=== PATIENT | female | born 1935 | race Caucasian/White ===

== ENCOUNTER 2018-09-28 13:58 | Emergency (ER) | payer MEDICARE ==
[~2018-09-28] VITALS: Ht 157.5 cm; Wt 54.0 kg
[~2018-09-28 13:58] MED LIST: ADV50250 INH; CHOLECALCIFEROL PO; CLOP75TA4 PO; COENZYME Q10 PO; DILT120T3 PO; METO100T7 PO; SIMV20TA5 PO; SPIIN IH; THEO600T PO
[2018-09-28 14:14] LABS: BASOPHILS % (AUTO) 0.1 % (0-1); EOSINOPHILS # (AUTO) 0.1 X10'3 (0-0.9); EOSINOPHILS % (AUTO) 2.2 % (0-6); HEMATOCRIT 39.9 % (35.0-45.0); HEMOGLOBIN 13.1 g/dl (12.0-16.0); LYMPHOCYTES # (AUTO) 0.4 X10'3 (1.1-4.8); LYMPHOCYTES % (AUTO) 8.5 % (21-51); MEAN CORPUSCULAR HEMOGLOBIN 29.9 PG (27.0-31.0); MEAN CORPUSCULAR HGB CONC 32.7 % (33.0-36.5); MEAN CORPUSCULAR VOLUME 91.2 FL (78-98); MEAN PLATELET VOLUME 6.4 FL (7.4-10.4); MONOCYTES # (AUTO) 0.5 X10'3 (0-0.9); MONOCYTES % (AUTO) 9.3 % (2-12); NEUTROPHILS # (AUTO) 4.1 X10'3 (1.8-7.7); NEUTROPHILS % (AUTO) 79.9 % (42-75); PLATELET COUNT 223 X10'3 (140-440); RED BLOOD COUNT 4.38 X10'6 (4.20-5.60); RED CELL DISTRIBUTION WIDTH 14.2 % (11.5-14.5); WHITE BLOOD COUNT 5.1 X10'3 (4.5-11.0)
[2018-09-28 14:29] LABS: PARTIAL THROMBOPLASTIN TIME 25 SECONDS (22-32)
[2018-09-28 14:32] LABS: ALANINE AMINOTRANSFERASE 23 U/L (12-78); ALBUMIN 3.6 G/DL (3.4-5.0); ALKALINE PHOSPHATASE 76 IU/L (46-116); ANION GAP 8 (8-16); ASPARTATE AMINO TRANSFERASE 17 U/L (10-37); BILIRUBIN,TOTAL 0.3 MG/DL (0.1-1.0); BLOOD UREA NITROGEN 14 MG/DL (7-18); BUN/CREATININE RATIO 19.7 (6.6-38.0); CALCIUM 9.4 MG/DL (8.5-10.1); CHLORIDE 100 MMOL/L (99-107); CREATININE 0.71 MG/DL (0.40-0.90); GLUCOSE 173 MG/DL (70-104); MAGNESIUM 1.5 MG/DL (1.5-2.4); POTASSIUM 3.4 MMOL/L (3.5-5.1); SODIUM 141 MMOL/L (135-145); TOTAL CARBON DIOXIDE 33.1 MMOL/L (24-32); TOTAL PROTEIN 7.2 G/DL (6.4-8.2); eGFR 79 ML/MIN
[2018-09-28] MEDS ORDERED: oseltamivir phos 75mg capsule PO ONE (14:45)
[2018-09-28 14:58] LABS: CLARITY,URINE CLEAR (Clear); COLOR,URINE YELLOW (Yellow); GLUCOSE, URINE NEGATIVE (Neg); KETONES,URINE NEGATIVE (Neg); LEUKOCYTE ESTERASE ,URINE MODERATE (Neg); NITRITES, URINE NEGATIVE (Neg); OCCULT BLOOD,URINE NEGATIVE (Neg); PROTEIN,URINE NEGATIVE (Neg); UROBILINOGEN,URINE 0.2 E.U/dL (0.2-1.0)
[2018-09-28 15:05] LABS: UA COLLECTION TYPE CLN CATCH MIDSTREAM
[2018-09-28 15:08] LABS: WBC,URINE 30-50 /HPF (0-4)
[2018-09-28 15:09] LABS: BACTERIA,URINE 2+ /HPF (Neg); RBC,URINE NONE SEEN /HPF (0-2); SQUAMOUS EPITHELIAL CELL,UR FEW /LPF (FEW)
[2018-09-28] MEDS ORDERED: LEVO500T89 PO (16:52)
[2018-09-28 17:17] VITALS: BP 180/83
== END 2018-09-28 17:18 | disposition home or self-care (01) ==
LOC: ER 13:58
DX: N39.0 Urinary tract infection, site not specified (principal); J44.1 Chronic obstructive pulmonary disease with (acute) exacerbation; Z88.1 Allergy status to other antibiotic agents; Z79.899 Other long term (current) drug therapy
CPT/HCPCS: 36415; 71045; 80053; 81001; 83605; 83735; 84145; 85025; 85610; 85730; 87040; 87088; 87502; 87503; 93005; 99284

== ENCOUNTER 2018-12-17 12:44 | Outpatient (CLI) | payer MEDICARE ==
[~2018-12-17] VITALS: Ht 157.5 cm; Wt 54.4 kg
[2018-12-17 13:25] LABS: TOTAL HEMOGLOBIN 13.7 G/dl (12.0-16.0)
[2018-12-17] MEDS ORDERED: albuterol 2.5 MG/3 ML nebule ONE (13:52)
[2018-12-17] MEDS ORDERED: albuterol 2.5 MG/3 ML nebule NEB ONE (14:35)
== END 2018-12-17 23:59 | disposition home or self-care (01) ==
LOC: RT 12:44
PROVIDERS: ATTEND Internal Medicine Pulmonary Disease
DX: J44.9 Chronic obstructive pulmonary disease, unspecified (principal); J61 Pneumoconiosis due to asbestos and other mineral fibers; I10 Essential (primary) hypertension; Z87.891 Personal history of nicotine dependence; Z79.82 Long term (current) use of aspirin; Z79.899 Other long term (current) drug therapy
CPT/HCPCS: 85018; 94060; 94727; 94729; 94760

== ENCOUNTER 2018-12-23 16:23 | Emergency (ER) | payer MEDICARE ==
[~2018-12-23] VITALS: Ht 157.5 cm; Wt 60.0 kg
[2018-12-23] MEDS ORDERED: ipratropium/albuterol 3ml nebule NEB ONE (17:20)
[2018-12-23] MEDS ORDERED: methylPREDNISolone sod succ 125mg/2ml vial IV ONE (17:20)
[2018-12-23 17:40] LABS: BASOPHILS % (AUTO) 0.4 % (0-1); EOSINOPHILS # (AUTO) 0.3 X10'3 (0-0.9); EOSINOPHILS % (AUTO) 3.8 % (0-6); HEMATOCRIT 36.6 % (35.0-45.0); HEMOGLOBIN 12.1 g/dl (12.0-16.0); LYMPHOCYTES # (AUTO) 0.5 X10'3 (1.1-4.8); LYMPHOCYTES % (AUTO) 5.8 % (21-51); MEAN CORPUSCULAR HEMOGLOBIN 30.1 PG (27.0-31.0); MEAN CORPUSCULAR HGB CONC 32.9 g/dL (33.0-36.5); MEAN CORPUSCULAR VOLUME 91.3 FL (78-98); MEAN PLATELET VOLUME 7.2 FL (7.4-10.4); MONOCYTES # (AUTO) 0.6 X10'3 (0-0.9); MONOCYTES % (AUTO) 7.1 % (2-12); NEUTROPHILS # (AUTO) 6.5 X10'3 (1.8-7.7); NEUTROPHILS % (AUTO) 82.9 % (42-75); PLATELET COUNT 158 X10'3 (140-440); RED BLOOD COUNT 4.01 X10'6 (4.20-5.60); RED CELL DISTRIBUTION WIDTH 14.7 % (11.5-14.5); WHITE BLOOD COUNT 7.8 X10'3 (4.5-11.0)
[2018-12-23 17:50] LABS: ABG BASE EXCESS 5.9 mmol/L (-2.0-3.0); ABG HCO3 31.9 mmol/L (22.0-26.0); ABG OXYGEN SATURATION 96.9 % (95-98); ABG PCO2 (T) 52.5 mmHg (32.0-45.0); ABG PH (T) 7.402 (7.350-7.450); ABG PO2 (T) 93.5 mmHg (83-108); ALLEN'S TEST Positive; FCOHb 0.3 % (0.5-1.5); FLOW 2 L/min; FMetHb 0.1 % (0.3-1.12); FO2Hb 96.5 % (94-100); TOTAL HEMOGLOBIN 12.4 G/dl (12.0-16.0)
[2018-12-23 17:52] LABS: ALANINE AMINOTRANSFERASE 24 U/L (12-78); ALBUMIN 3.3 G/DL (3.4-5.0); ALBUMIN/GLOBULIN RATIO 1.1 (1.1-1.5); ALKALINE PHOSPHATASE 68 IU/L (46-116); ANION GAP 3 (8-16); ASPARTATE AMINO TRANSFERASE 18 U/L (10-37); BILIRUBIN,TOTAL 0.2 MG/DL (0.1-1.0); BLOOD UREA NITROGEN 14 MG/DL (7-18); BUN/CREATININE RATIO 20.6 (6.6-38.0); CALCIUM 8.7 MG/DL (8.5-10.1); CHLORIDE 105 MMOL/L (99-107); CREATININE 0.68 MG/DL (0.40-0.90); GLUCOSE 142 MG/DL (70-104); POTASSIUM 3.7 MMOL/L (3.5-5.1); SODIUM 141 MMOL/L (135-145); TOTAL CARBON DIOXIDE 33.1 MMOL/L (24-32); TOTAL PROTEIN 6.4 G/DL (6.4-8.2); eGFR 83 ML/MIN
[2018-12-23 18:04] LABS: INR 0.9 INR; PARTIAL THROMBOPLASTIN TIME 24 SECONDS (22-32); PROTHROMBIN TIME 9.5 SECONDS (9.0-12.0)
[2018-12-23 18:34] VITALS: BP 135/79
== END 2018-12-23 18:41 | disposition home or self-care (01) ==
LOC: ER 16:24
DX: J44.1 Chronic obstructive pulmonary disease with (acute) exacerbation (principal); Z99.81 Dependence on supplemental oxygen; Z88.1 Allergy status to other antibiotic agents; Z79.899 Other long term (current) drug therapy
CPT/HCPCS: 36415; 36600; 71045; 80053; 82803; 84484; 85018; 85025; 85610; 85730; 93005; 94640; 96374; 99284; J2930

== ENCOUNTER 2019-05-07 09:25 | Emergency (ER) | payer MEDICARE ==
[~2019-05-07] VITALS: Ht 152.4 cm; Wt 52.0 kg
[2019-05-07 11:17] VITALS: BP 148/72
== END 2019-05-07 11:20 | disposition home or self-care (01) ==
LOC: ER 09:26
DX: R04.0 Epistaxis (principal); J44.9 Chronic obstructive pulmonary disease, unspecified; Z87.891 Personal history of nicotine dependence; Z88.1 Allergy status to other antibiotic agents; Z79.899 Other long term (current) drug therapy
CPT/HCPCS: 99284

== ENCOUNTER 2019-05-21 11:21 | Inpatient (IN) | payer MEDICARE ==
[~2019-05-21] VITALS: Ht 157.5 cm; Wt 51.8 kg
[2019-05-21] MEDS ORDERED: dexamethasone sod phosphate 10mg/ml inj IV STA (11:52)
[2019-05-21] MEDS ORDERED: ipratropium/albuterol 3ml nebule NEB ONE (11:55)
--- NOTE | 2019-05-21 12:24 | NUR ---
PT STATES, WAS HERE LAST WEEK FOR SAME THING AND NOT DOING ANY BETTER. INFORMED DR. RIBEIRO OF BP 159/114
--- NOTE | 2019-05-21 12:25 | NUR ---
DR. Rutledge IN THE ROOM ASSESSING PT, RR 32 AND RECEIVING ALBUTEROL NEB AT THIS TIME
[2019-05-21] MEDS ORDERED: normal saline 1000ML IV soln IVB ONE (12:45)
[2019-05-21 12:52] LABS: BASOPHILS % (AUTO) 0.3 % (0-1); EOSINOPHILS # (AUTO) 0.2 X10'3 (0-0.9); EOSINOPHILS % (AUTO) 3.5 % (0-6); HEMATOCRIT 38.2 % (35.0-45.0); HEMOGLOBIN 12.8 g/dl (12.0-16.0); LYMPHOCYTES # (AUTO) 0.4 X10'3 (1.1-4.8); MEAN CORPUSCULAR HEMOGLOBIN 30.6 PG (27.0-31.0); MEAN CORPUSCULAR HGB CONC 33.5 g/dL (33.0-36.5); MEAN CORPUSCULAR VOLUME 91.2 FL (78-98); MONOCYTES # (AUTO) 0.5 X10'3 (0-0.9); MONOCYTES % (AUTO) 7.1 % (2-12); NEUTROPHILS # (AUTO) 5.9 X10'3 (1.8-7.7); NEUTROPHILS % (AUTO) 84.1 % (42-75); PLATELET COUNT 206 X10'3 (140-440); RED BLOOD COUNT 4.19 X10'6 (4.20-5.60); RED CELL DISTRIBUTION WIDTH 13.8 % (11.5-14.5)
[2019-05-21 13:03] LABS: ALANINE AMINOTRANSFERASE 20 U/L (12-78); ALBUMIN 3.8 G/DL (3.4-5.0); ALBUMIN/GLOBULIN RATIO 1.1 (1.1-1.5); ALKALINE PHOSPHATASE 64 IU/L (46-116); ANION GAP 6 (8-16); ASPARTATE AMINO TRANSFERASE 14 U/L (10-37); BILIRUBIN,TOTAL 0.2 MG/DL (0.1-1.0); BLOOD UREA NITROGEN 18 MG/DL (7-18); BUN/CREATININE RATIO 31.6 (6.6-38.0); CHLORIDE 101 MMOL/L (99-107); CREATININE 0.57 MG/DL (0.40-0.90); GLUCOSE 130 MG/DL (70-104); POTASSIUM 4.1 MMOL/L (3.5-5.1); SODIUM 142 MMOL/L (135-145); TOTAL CARBON DIOXIDE 35.1 MMOL/L (24-32); TOTAL PROTEIN 7.3 G/DL (6.4-8.2); eGFR > 90 ML/MIN
[2019-05-21] MEDS ORDERED: azithromycin 250mg tablet PO ONE (14:20)
[2019-05-21] MEDS ORDERED: CefTRIAXone 2gm/D5W 50ml 50 ML IV ONE (14:20)
[2019-05-21] MEDS ORDERED: PROM473S4 PO (14:59)
[2019-05-21] MEDS ORDERED: PREG50CA PO (14:59)
[2019-05-21] MEDS ORDERED: ondansetron/PF 4mg/2ml inj IV PRN (15:30)
[2019-05-21] MEDS ORDERED: magnesium 2GM in 50ml NS 50 ML IV PRN (15:30)
[2019-05-21] MEDS ORDERED: potassium CL 10mEq/100ml bag 100 ML IV PRN ×2 (15:30)
[2019-05-21] MEDS ORDERED: magnesium Cl slow-release 64mg tablet PO PRN (15:30)
[2019-05-21] MEDS ORDERED: acetaminophen 325mg tablet PO PRN (15:30)
[2019-05-21] MEDS ORDERED: potassium Cl 20 mEq SR tablet PO PRN ×2 (15:30)
[2019-05-21] MEDS ORDERED: magnesium 4gm in 100ml NS 100 ML IV PRN (15:30)
--- NOTE | 2019-05-21 17:30 | NUR ---
Received patient from ER
[2019-05-21 17:35] VITALS: BP 184/91
[2019-05-21 18:00] VITALS: BP 184/91
--- NOTE | 2019-05-21 18:23 | NUR ---
Patient report to Bruna HERNANDEZ
[2019-05-21] MEDS: lactobacillus rhamnosus 10,000 MMU CELLS/CAPSULE PO SCH (19:27)
[2019-05-21] MEDS: metoprolol succinate 25mg (24-HOUR) SR. Tablet PO SCH (19:27)
[2019-05-21] MEDS: pregabalin 25mg capsule PO SCH (19:28)
[2019-05-21] MEDS: clopidogrel 75mg tablet PO SCH (19:28)
[2019-05-21] MEDS: heparin, porcine 5000 units/ml vial SQ SCH (19:29)
[2019-05-21] MEDS: ipratropium/albuterol 3ml nebule NEB PRN ×2 (19:56→23:37)
[2019-05-21] MEDS ORDERED: methylPREDNISolone sod succ/PF 40mg inj. IV ONE (20:00)
[2019-05-21] MEDS: famotidine 20mg tablet PO SCH (21:00)
[2019-05-21 21:58] VITALS: BP 117/41
[2019-05-22] MEDS: ipratropium/albuterol 3ml nebule NEB PRN ×5 (03:40→23:52)
[2019-05-22 06:00] VITALS: BP 126/58
[2019-05-22 06:15] LABS: BASOPHILS % (AUTO) 0.1 % (0-1); EOSINOPHILS % (AUTO) 0 % (0-6); HEMATOCRIT 37.4 % (35.0-45.0); HEMOGLOBIN 12.5 g/dl (12.0-16.0); LYMPHOCYTES # (AUTO) 0.4 X10'3 (1.1-4.8); LYMPHOCYTES % (AUTO) 8.6 % (21-51); MEAN CORPUSCULAR HEMOGLOBIN 30.4 PG (27.0-31.0); MEAN CORPUSCULAR HGB CONC 33.5 g/dL (33.0-36.5); MEAN CORPUSCULAR VOLUME 90.8 FL (78-98); MEAN PLATELET VOLUME 6.8 FL (7.4-10.4); MONOCYTES # (AUTO) 0.2 X10'3 (0-0.9); MONOCYTES % (AUTO) 3.5 % (2-12); NEUTROPHILS # (AUTO) 3.8 X10'3 (1.8-7.7); NEUTROPHILS % (AUTO) 87.8 % (42-75); PLATELET COUNT 218 X10'3 (140-440); RED BLOOD COUNT 4.12 X10'6 (4.20-5.60); RED CELL DISTRIBUTION WIDTH 13.5 % (11.5-14.5); WHITE BLOOD COUNT 4.3 X10'3 (4.5-11.0)
[2019-05-22 06:29] LABS: ALBUMIN 3.4 G/DL (3.4-5.0); ANION GAP 6 (8-16); BLOOD UREA NITROGEN 18 MG/DL (7-18); BUN/CREATININE RATIO 28.6 (6.6-38.0); CALCIUM 8.9 MG/DL (8.5-10.1); CHLORIDE 101 MMOL/L (99-107); CREATININE 0.63 MG/DL (0.40-0.90); GLUCOSE 115 MG/DL (70-104); MAGNESIUM 1.7 MG/DL (1.5-2.4); SODIUM 140 MMOL/L (135-145); TOTAL CARBON DIOXIDE 33.4 MMOL/L (24-32); eGFR 90 ML/MIN
[2019-05-22] MEDS ORDERED: CHOLECALCIFEROL PO SCH (08:00)
[2019-05-22] MEDS ORDERED: COENZYME Q10 PO SCH (08:00)
[2019-05-22] MEDS: K and/or MAG REPLACEMENT MC SCH (08:06)
[2019-05-22] MEDS: lactobacillus rhamnosus 10,000 MMU CELLS/CAPSULE PO SCH ×2 (08:07→20:09)
[2019-05-22] MEDS: levoFLOXACIN-Levaquin 500mg/D5 100 ML IV SCH (08:07)
[2019-05-22] MEDS: atorvastatin 10mg tablet PO SCH (08:08)
[2019-05-22] MEDS: metoprolol succinate 25mg (24-HOUR) SR. Tablet PO SCH ×2 (08:08→20:05)
[2019-05-22] MEDS: clopidogrel 75mg tablet PO SCH (08:08)
[2019-05-22] MEDS: pregabalin 25mg capsule PO SCH ×2 (08:09→20:07)
[2019-05-22] MEDS: heparin, porcine 5000 units/ml vial SQ SCH ×2 (08:10→20:07)
[2019-05-22 10:00] VITALS: BP 163/70
--- NOTE | 2019-05-22 12:07 | NUR ---
Malnutrition consult: Patient's current wt is unreliable as it is pt stated. Most recent scaled wt hx is 63.5 kg taken October 2016 using standing scale. If current wt is accurate this would be non-significant wt loss of 18% in 2.5 years. Pt currently on regular diet documented with 50% PO intake at dinner last night however 100% at breakfast this morning meeting nutrient needs. Pt well-developed per H&P. No edema or significant decrease in muscle strength. Pt currently lacks a minimum of two criteria for malnutrition. Will continue to follow. Addendum: 05/22/19 at [address] Amended: Links added.
[2019-05-22 18:00] VITALS: BP 138/63
--- NOTE | 2019-05-22 18:37 | NUR ---
Report to Mc HERNANDEZ
--- NOTE | 2019-05-22 19:00 | NUR ---
Patient in room [facility] 4021. I have received report from Lisbet HERNANDEZ and had the opportunity to ask questions and assume patient care.
[2019-05-22] MEDS: famotidine 20mg tablet PO SCH (20:09)
[2019-05-22] MEDS: methylPREDNISolone sod succ/PF 40mg inj. IV SCH (20:14)
[2019-05-22 22:00] VITALS: BP 144/78
[2019-05-23] MEDS: ipratropium/albuterol 3ml nebule NEB PRN ×3 (04:16→12:34)
[2019-05-23 06:00] VITALS: BP 145/65
--- NOTE | 2019-05-23 06:05 | NUR ---
Patient in room [facility]TH[facility] 4021. I have received report from Maninder Nielson and had the opportunity to ask questions and assume patient care.
[2019-05-23] MEDS: K and/or MAG REPLACEMENT MC SCH (08:00)
[2019-05-23 08:06] LABS: BASOPHILS % (AUTO) 0.1 % (0-1); EOSINOPHILS % (AUTO) 0 % (0-6); HEMATOCRIT 38.9 % (35.0-45.0); HEMOGLOBIN 13.1 g/dl (12.0-16.0); LYMPHOCYTES # (AUTO) 0.4 X10'3 (1.1-4.8); LYMPHOCYTES % (AUTO) 7.4 % (21-51); MEAN CORPUSCULAR HEMOGLOBIN 30.2 PG (27.0-31.0); MEAN CORPUSCULAR HGB CONC 33.6 g/dL (33.0-36.5); MEAN CORPUSCULAR VOLUME 89.8 FL (78-98); MONOCYTES # (AUTO) 0.3 X10'3 (0-0.9); MONOCYTES % (AUTO) 4.5 % (2-12); NEUTROPHILS # (AUTO) 5.2 X10'3 (1.8-7.7); PLATELET COUNT 251 X10'3 (140-440); RED BLOOD COUNT 4.33 X10'6 (4.20-5.60); RED CELL DISTRIBUTION WIDTH 13.4 % (11.5-14.5); WHITE BLOOD COUNT 5.9 X10'3 (4.5-11.0)
[2019-05-23 08:13] LABS: ALBUMIN 3.7 G/DL (3.4-5.0); ANION GAP 3 (8-16); BLOOD UREA NITROGEN 19 MG/DL (7-18); CALCIUM 9.3 MG/DL (8.5-10.1); CHLORIDE 100 MMOL/L (99-107); CREATININE 0.76 MG/DL (0.40-0.90); GLUCOSE 116 MG/DL (70-104); MAGNESIUM 1.8 MG/DL (1.5-2.4); POTASSIUM 4.1 MMOL/L (3.5-5.1); SODIUM 139 MMOL/L (135-145); TOTAL CARBON DIOXIDE 35.7 MMOL/L (24-32); eGFR 73 ML/MIN
[2019-05-23] MEDS: metoprolol succinate 25mg (24-HOUR) SR. Tablet PO SCH (08:19)
[2019-05-23] MEDS: pregabalin 25mg capsule PO SCH (08:19)
[2019-05-23] MEDS: lactobacillus rhamnosus 10,000 MMU CELLS/CAPSULE PO SCH (08:19)
[2019-05-23] MEDS: clopidogrel 75mg tablet PO SCH (08:19)
[2019-05-23] MEDS: atorvastatin 10mg tablet PO SCH (08:19)
[2019-05-23] MEDS: heparin, porcine 5000 units/ml vial SQ SCH (08:20)
[2019-05-23] MEDS: methylPREDNISolone sod succ/PF 40mg inj. IV SCH (08:48)
[2019-05-23] MEDS: levoFLOXACIN-Levaquin 500mg/D5 100 ML IV SCH (08:48)
[2019-05-23 10:00] VITALS: BP 160/58
[2019-05-23] MEDS ORDERED: IPRA3AMP9 NEB (10:44)
[2019-05-23] MEDS ORDERED: LEVO500T2 PO (10:44)
--- NOTE | 2019-05-23 13:07 | NUR ---
Pt is alert, oriented and in good spirits. Pt does not have any c/o pain or discomfort. Pt had requested a breathing treatment immediately before discharge. Respiratory gave pt treatment. Rx was called in to [facility] [address]. All of pt's belongings were returned to pt. Pt was wheeled downstairs to be driven home by a friend.
== END 2019-05-23 12:50 | disposition home or self-care (01) | DRG 202 ==
LOC: ER 11:21 → ORTHO 4S 17:15
PROVIDERS: ADMIT Internal Medicine; ATTEND Internal Medicine
DX: J20.9 Acute bronchitis, unspecified (principal); J96.10 Chronic respiratory failure, unspecified whether with hypoxia or hypercapnia; C78.00 Secondary malignant neoplasm of unspecified lung; E78.5 Hyperlipidemia, unspecified; F17.210 Nicotine dependence, cigarettes, uncomplicated; I10 Essential (primary) hypertension; J43.9 Emphysema, unspecified; Z66 Do not resuscitate; Z82.49 Family history of ischemic heart disease and other diseases of the circulatory system; Z80.3 Family history of malignant neoplasm of breast; Z80.51 Family history of malignant neoplasm of kidney; Z80.8 Family history of malignant neoplasm of other organs or systems; Z82.5 Family history of asthma and other chronic lower respiratory diseases; Z85.43 Personal history of malignant neoplasm of ovary; Z85.51 Personal history of malignant neoplasm of bladder; Z90.710 Acquired absence of both cervix and uterus
CPT/HCPCS: 36415; 71045; 80048; 80053; 83735; 83880; 84484; 85025; 87081; 93005; 94640; 94760; 96361; 96365; 96375; 99285; G0378; J0696; J1100; J1644; J1956; J2920

== ENCOUNTER 2019-09-12 11:25 | Emergency (ER) | payer MEDICARE ==
[~2019-09-12] VITALS: Ht 157.5 cm; Wt 48.0 kg
[~2019-09-12 11:25] MED LIST changes: -DILT120T3 PO; +IPRA3AMP9 NEB; +PREG50CA PO; +PROM473S4 PO; +SIMV-42 PO; -SIMV20TA5 PO; -THEO600T PO
--- NOTE | 2019-09-12 11:46 | NUR ---
PT ON DOXYCYCLINE FOR LUNG INFECTION AND LABIA AREA
[2019-09-12] MEDS ORDERED: azithromycin 250mg tablet PO ONE (12:55)
[2019-09-12] MEDS ORDERED: ipratropium/albuterol 3ml nebule NEB ONE (12:55)
[2019-09-12 13:06] LABS: BASOPHILS % (AUTO) 0.2 % (0-1); EOSINOPHILS % (AUTO) 0.4 % (0-6); HEMATOCRIT 37.2 % (35.0-45.0); HEMOGLOBIN 12.4 g/dl (12.0-16.0); LYMPHOCYTES # (AUTO) 0.2 X10'3 (1.1-4.8); LYMPHOCYTES % (AUTO) 2.5 % (21-51); MEAN CORPUSCULAR HGB CONC 33.2 g/dL (33.0-36.5); MEAN CORPUSCULAR VOLUME 93.2 FL (78-98); MEAN PLATELET VOLUME 7.4 FL (7.4-10.4); MONOCYTES # (AUTO) 0.3 X10'3 (0-0.9); MONOCYTES % (AUTO) 4.1 % (2-12); NEUTROPHILS # (AUTO) 6.8 X10'3 (1.8-7.7); NEUTROPHILS % (AUTO) 92.8 % (42-75); PLATELET COUNT 184 X10'3 (140-440); RED BLOOD COUNT 3.99 X10'6 (4.20-5.60); RED CELL DISTRIBUTION WIDTH 14.1 % (11.5-14.5); WHITE BLOOD COUNT 7.3 X10'3 (4.5-11.0)
[2019-09-12 13:17] LABS: PARTIAL THROMBOPLASTIN TIME 24 SECONDS (22-32)
[2019-09-12 13:24] LABS: ALANINE AMINOTRANSFERASE 29 U/L (12-78); ALBUMIN 3.6 G/DL (3.4-5.0); ALBUMIN/GLOBULIN RATIO 1.3 (1.1-1.5); ALKALINE PHOSPHATASE 69 IU/L (46-116); ANION GAP -1 (8-16); ASPARTATE AMINO TRANSFERASE 16 U/L (10-37); BILIRUBIN,TOTAL 0.4 MG/DL (0.1-1.0); BLOOD UREA NITROGEN 19 MG/DL (7-18); BUN/CREATININE RATIO 25.3 (6.6-38.0); CALCIUM 8.9 MG/DL (8.5-10.1); CHLORIDE 101 MMOL/L (99-107); CREATININE 0.75 MG/DL (0.40-0.90); GLUCOSE 124 MG/DL (70-104); POTASSIUM 3.9 MMOL/L (3.5-5.1); SODIUM 138 MMOL/L (135-145); TOTAL CARBON DIOXIDE 37.6 MMOL/L (24-32); TOTAL PROTEIN 6.4 G/DL (6.4-8.2); eGFR 74 ML/MIN
[2019-09-12] MEDS ORDERED: AZIT250T PO (14:25)
[2019-09-12 14:30] VITALS: BP 133/83
== END 2019-09-12 15:07 | disposition home or self-care (01) ==
LOC: ER 11:26
DX: J44.1 Chronic obstructive pulmonary disease with (acute) exacerbation (principal); E78.00 Pure hypercholesterolemia, unspecified; Z86.718 Personal history of other venous thrombosis and embolism; Z88.1 Allergy status to other antibiotic agents; Z79.899 Other long term (current) drug therapy; Z79.01 Long term (current) use of anticoagulants
CPT/HCPCS: 36415; 71045; 80053; 83880; 84484; 85025; 85610; 85730; 93005; 94640; 94760; 99284

== ENCOUNTER 2019-09-17 12:43 | Emergency (ER) | payer MEDICARE ==
[~2019-09-17] VITALS: Ht 157.5 cm; Wt 47.7 kg
[~2019-09-17 12:43] MED LIST changes: +AZIT250T PO
[2019-09-17 13:45] LABS: BASOPHILS % (AUTO) 0.2 % (0-1); EOSINOPHILS % (AUTO) 0.3 % (0-6); HEMATOCRIT 38.9 % (35.0-45.0); LYMPHOCYTES # (AUTO) 0.4 X10'3 (1.1-4.8); LYMPHOCYTES % (AUTO) 5.3 % (21-51); MEAN CORPUSCULAR HGB CONC 33.4 g/dL (33.0-36.5); MEAN CORPUSCULAR VOLUME 92.8 FL (78-98); MEAN PLATELET VOLUME 7.4 FL (7.4-10.4); MONOCYTES # (AUTO) 0.4 X10'3 (0-0.9); MONOCYTES % (AUTO) 4.8 % (2-12); NEUTROPHILS # (AUTO) 7.5 X10'3 (1.8-7.7); NEUTROPHILS % (AUTO) 89.4 % (42-75); PLATELET COUNT 216 X10'3 (140-440); WHITE BLOOD COUNT 8.4 X10'3 (4.5-11.0)
[2019-09-17 13:50] VITALS: BP 158/99
[2019-09-17] MEDS ORDERED: ipratropium/albuterol 3ml nebule NEB ONE (13:55)
[2019-09-17 14:00] LABS: ALANINE AMINOTRANSFERASE 33 U/L (12-78); ALBUMIN 3.5 G/DL (3.4-5.0); ALBUMIN/GLOBULIN RATIO 1.1 (1.1-1.5); ALKALINE PHOSPHATASE 73 IU/L (46-116); ANION GAP 0 (8-16); ASPARTATE AMINO TRANSFERASE 21 U/L (10-37); BILIRUBIN,TOTAL 0.5 MG/DL (0.1-1.0); BLOOD UREA NITROGEN 21 MG/DL (7-18); BUN/CREATININE RATIO 29.2 (6.6-38.0); CHLORIDE 99 MMOL/L (99-107); CREATININE 0.72 MG/DL (0.40-0.90); GLUCOSE 126 MG/DL (70-104); POTASSIUM 4.2 MMOL/L (3.5-5.1); SODIUM 137 MMOL/L (135-145); TOTAL CARBON DIOXIDE 37.8 MMOL/L (24-32); TOTAL PROTEIN 6.8 G/DL (6.4-8.2); eGFR 78 ML/MIN
== END 2019-09-17 15:58 | disposition home or self-care (01) ==
LOC: ER 12:43
DX: J44.9 Chronic obstructive pulmonary disease, unspecified (principal); R06.03 Acute respiratory distress; E78.00 Pure hypercholesterolemia, unspecified; Z86.718 Personal history of other venous thrombosis and embolism; Z85.43 Personal history of malignant neoplasm of ovary; Z88.1 Allergy status to other antibiotic agents; Z79.899 Other long term (current) drug therapy
CPT/HCPCS: 36415; 71045; 80053; 83880; 84484; 85025; 93005; 94640; 94760; 99284

== ENCOUNTER 2019-10-04 07:20 | Emergency (ER) | payer MEDICARE ==
[~2019-10-04] VITALS: Ht 162.6 cm; Wt 70.0 kg
[2019-10-04] MEDS ORDERED: phenylephrine 1% Nasal spray (extra-strength) 15 ML bottle **bronch room NS PRN (07:30)
[2019-10-04] MEDS ORDERED: cocaine 4% topical solution 4ml bottle MM ONE (07:30)
--- NOTE | 2019-10-04 09:00 | NUR ---
Pt verbalized concern about going home "because there's no one there." Discussed situation with mikala Marie, breathing tx and education r/t Home Health RNs recommended. Pt verbalized understanding of mechanism for seeking possible Home Health services, particularly given this ED visit. She will be f/u with her pcp Dr Magdaleno tomorrow morning.
[2019-10-04] MEDS ORDERED: albuterol 2.5 MG/3 ML nebule NEB ONE (09:20)
[2019-10-04 10:06] VITALS: BP 130/67
== END 2019-10-04 10:23 | disposition home or self-care (01) ==
LOC: ER 07:20
DX: R04.0 Epistaxis (principal); I10 Essential (primary) hypertension; E78.00 Pure hypercholesterolemia, unspecified; J44.9 Chronic obstructive pulmonary disease, unspecified; Z99.81 Dependence on supplemental oxygen; Z86.718 Personal history of other venous thrombosis and embolism; Z88.1 Allergy status to other antibiotic agents; Z79.899 Other long term (current) drug therapy
CPT/HCPCS: 30901; 94640; 94760; 99284